=== PATIENT | female | born 1960 | race Caucasian/White ===

== ENCOUNTER 2020-12-18 02:56 | Emergency (ER) | payer BC ==
[~2020-12-18] VITALS: Ht 172.7 cm; Wt 112.3 kg
[2020-12-18 03:02] VITALS: TEMP 98
[2020-12-18 03:26] LABS: MUCOUS Present /lpf; PH 5 (5-8); URINE APPEARANCE Cloudy; URINE BACTERIA None Seen /hpf; URINE BILIRUBIN Negative (NEGATIVE); URINE BLOOD Negative (NEGATIVE); URINE CALCIUM OXALATE CRYSTAL Present /hpf; URINE COLOR Red; URINE GLUCOSE Negative (NEGATIVE); URINE KETONE Negative (NEGATIVE); URINE LEUKOCYTE ESTERASE Negative (NEGATIVE); URINE NITRATE Positive (NEGATIVE); URINE PROTEIN(semi-quant) 2+ (NEGATIVE); URINE UROBILINOGEN >=4.0 mg/dL (NEGATIVE); URINE WBC 0-2 /hpf
[2020-12-18 03:31] LABS: COLLECTION METHOD CLEAN CATCH
[2020-12-18 03:39] LABS: BASO % 0.3 % (0.0-2.0); EOS # 0.1 (0.0-0.7); EOS % 0.7 % (0-4.0); GRAN # 7.9 (1.4-6.5); GRAN % 72.2 % (42.2-75.2); HEMATOCRIT 46.3 % (37.0-47.0); HEMOGLOBIN 15.7 g/dl (12.5-16.0); LYMPH % 18.6 % (20.0-51.0); MEAN CELL VOLUME 89 fl (80.0-100.0); MEAN CORPUSCULAR HEMOGLOBIN 30 pg (27.0-31.0); MEAN CORPUSCULAR HGB CONC 34 g/dl (33.0-37.0); MEAN PLATELET VOLUME 9.7 fl (7.4-10.4); MONO # 0.9 (0.1-0.6); MONO % 7.9 % (1.7-9.3); PLATELET COUNT 221 K/mm3 (130-400); RED BLOOD COUNT 5.22 M/mm3 (4.10-5.30); REDCELL DISTRIBUTION WIDTH-CV 13.2 % (11.5-14.5)
[2020-12-18 03:51] LABS: ALBUMIN 4.7 gm/dL (3.5-5.0); BILIRUBIN,TOTAL 0.6 mg/dL (0.0-1.0); CREATININE, serum 1.05 (0.52-1.25); POTASSIUM 4.1 mmol/L (3.4-5.0); TOTAL PROTEIN 8.1 gm/dL (6.4-8.2)
[2020-12-18] MEDS ORDERED: PYRIDIUM 100MG100 MG PO (04:37)
[2020-12-18] MEDS ORDERED: ROXICODONE 55 MG/TAB PO (04:37)
[2020-12-18] MEDS ORDERED: FLOMAX 0.40.4 MG/CAP PO (04:37)
[2020-12-18 05:25] VITALS: BP 137/85; PULSE 81
== END 2020-12-18 05:25 | disposition home or self-care (01) ==
LOC: COL.ER 02:56 → EDSEX 02:57 → COL.ER 05:25
PROVIDERS: Student in an Organized Health Care Education/Training Program
DX: N13.2 Hydronephrosis with renal and ureteral calculous obstruction (principal); F17.210 Nicotine dependence, cigarettes, uncomplicated; Z88.2 Allergy status to sulfonamides; Z88.1 Allergy status to other antibiotic agents
CPT/HCPCS: J1885; J7030